=== PATIENT | male | born 1970 | race Caucasian/White ===

== ENCOUNTER 2021-07-17 10:32 | Emergency (ER) | payer OTHER ==
[2021-07-17] MEDS ORDERED: Morphine 10 MG/ML Syringe IM ONE (10:37)
[2021-07-17] MEDS ORDERED: Morphine 10 MG/ML Syringe IVPUSH ONE (10:37)
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
[2021-07-17] MEDS ORDERED: Morphine 4 MG/ML Syringe IV ONE (11:00)
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
--- NOTE | 2021-07-17 12:02 | CR ---
INDICATION: Shoulder pain after fall. TECHNIQUE: Two views right greater humeral joint. IMPRESSION: No acute fracture or traumatic malalignment appreciated. Somewhat narrow acromiohumeral distance suggested although suboptimally assessed due to obliquely. Clinical correlation for rotator cuff arthropathy. Minor osteoarthritis subarticular sclerosis cysts and osteophytes at the normal with AC joint. No clavicular dislocation or fracture. Dictated by Nato Witt MD @ 07/17/2021 12:01:35 PM (Electronically Signed)
== END 2021-07-17 12:35 | disposition home or self-care (01) ==
LOC: MW.ED 10:32
DX: S46.001A Unspecified injury of muscle(s) and tendon(s) of the rotator cuff of right shoulder, initial encounter (principal); Z91.018 Allergy to other foods; V86.59XA Driver of other special all-terrain or other off-road motor vehicle injured in nontraffic accident, initial encounter; Y92.410 Unspecified street and highway as the place of occurrence of the external cause
CPT/HCPCS: 70450; 73030; 96374; 99284; J2270; 99283